=== PATIENT | male | born 1980 | race Caucasian/White ===

== ENCOUNTER 2021-12-26 10:52 | Outpatient (CLI) | payer OTHER, SELFPAY ==
[2021-12-26 22:10] LABS: Albumin* 4.7 g/dL (3.3-5.0); Chloride* 100 mmol/L (96-114)
[2021-12-26 22:11] LABS: Potassium* 4.7 mmol/L (3.6-5.1); Sodium* 136 mmol/L (135-149)
[2021-12-26 22:13] LABS: Bilirubin Total* 1.1 mg/dL (0.1-1.5); Carbon Dioxide* 28 mmol/L (20-32); Cholesterol* 217 mg/dL (90-199); Creatinine* 0.9 mg/dL (0.5-1.5); Estimated Glomerular Filt Rate 110 ml/min
[2021-12-26 22:14] LABS: Alkaline Phosphatase* 78 U/L (40-150); Aspartate Amino Transferase* 35 U/L (12-35); Blood Urea Nitrogen* 14 mg/dL (5-24); Calcium* 9.9 mg/dL (8.4-10.6); Glucose* 93 mg/dL (60-115); HDL Cholesterol* 61 mg/dL (>=40); LDL Cholesterol Calculated 131 mg/dL (<100); Total Protein* 7.5 g/dL (6.0-8.3); Triglycerides* 123 mg/dL (40-149)
[2021-12-26 22:15] LABS: Alanine Aminotransferase* < 4 U/L (4-50)
== END 2021-12-26 10:53 | disposition home or self-care (01) ==
PROVIDERS: PCP Physician Assistant Medical; Visit Provider Physician Assistant Medical
DX: Z00.00 Encounter for general adult medical examination without abnormal findings (principal); G20 Parkinson's disease; Z13.6 Encounter for screening for cardiovascular disorders; Z12.5 Encounter for screening for malignant neoplasm of prostate; Z13.29 Encounter for screening for other suspected endocrine disorder
CPT/HCPCS: 80053; 80061; 84153; 84443

== ENCOUNTER 2022-01-04 19:01 | Emergency (ER) | payer OTHER, SELFPAY ==
[2022-01-04 19:15] VITALS: BP 114/77; PULSE 73; RESP 18; TEMP 36.7; O2SAT 99; BMI 27.9
--- NOTE | 2022-01-04 20:23 | ED.GENADULT ---
HPI - General Adult General Date Seen: 01/04/22 Chief complaint: Laceration/Wound Stated complaint: Cut on Chin Time Seen by Provider: 01/04/22 19:24 Source: patient and family History of Present Illness HPI narrative: Patient is a 41-year-old male with underlying early onset Parkinson's and some associated dementia here with significant other for evaluation of a chin laceration. He was apparently walking up a hill with a wheelbarrow, tripped and chin was lacerated on shovel which he had been using today can injured. He is not up-to-date on his tetanus which he last had in November of 2011. Bleeding is controlled. No other injuries or complaints. Related Data Home Medications Medication Instructions Recorded Confirmed amitriptyline 10 mg tablet 10 mg PO QDAY 12/26/21 01/04/22 carbidopa 25 mg-levodopa 100 mg 1 tab PO .5 Times Daily 12/26/21 01/04/22 tablet carbidopa ER 25 mg-levodopa 100 mg 1 tab PO BID 12/26/21 01/04/22 tablet,extended release carbidopa ER 61.25 mg-levodopa 245 3 cap PO TID 12/26/21 01/04/22 mg capsule,extended release cyclosporine 0.05 % eye drops in a 1 drp ophthalmic (eye) Q12H 12/26/21 01/04/22 dropperette (Restasis) folic acid-vit B6-vit B12 2.5 1 tab PO QDAY 12/26/21 01/04/22 mg-25 mg-2 mg tablet (Folbic) multi vitamin 1 tab PO DAILY 12/26/21 01/04/22 polymyxin B sulfate 10,000 2 ophthalmic (eye) TID 12/26/21 12/26/21 unit-trimethoprim 1 mg/mL eye drops quetiapine 25 mg tablet 25 mg PO HS 01/04/22 01/04/22 Allergies Allergy/AdvReac Type Severity Reaction Status Date / Time No Known Allergies Allergy Unknown Verified 12/26/21 10:09 [facility] Medical History (Updated 01/04/22 @ 20:12 by Samantha Bey MD) Early-onset Parkinson's disease 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 Urinary hesitancy Surgical History Status post vasectomy Family History (Updated 12/24/21 @ 10:56 by Swapnil Corbett) Other Melanoma Social History Smoking Status: Never smoker Do you use any of these nicotine containing products: None Second hand tobacco smoke exposure: No How often do you have a drink containing alcohol: never How often do you have six or more drinks on one occasion: Never AUDIT-C Alcohol total score: 0 Non-prescribed substance use: denies use Little interest or pleasure in doing things: not at all Feeling down, depressed, or hopeless: not at all Exam Narrative: Exam Narrative: Vital signs reviewed In general, an alert, nontoxic male. Head: Normocephalic. Eyes: Pupils equal reactive. ENT: No bony facial trauma. Dentition intact. 1/2 cm laceration into the subcutaneous tissues on the chin. Bleeding controlled. Wound edges approximate nicely. Const: Vital Signs, click to edit/add: Vital Signs - 24 hr 01/04/22 19:15 Temperature 98.0 F Pulse Rate [Right Pulse Oximeter] 73 Respiratory Rate 18 Blood Pressure [Ri ght Upper Arm] 114/77 Pulse Oximetry 99 Oxygen Delivery Me thod Room Air Documenting provider has reviewed patient's vital signs: yes Course Course Hospital Course: In discussion with the patient he preferred glue that was an option. I think given that the wound comes together so nicely and that bleeding is actually non-existent it is reasonable to use a blue here. Wound was cleaned and then closed with Dermabond. He tolerated this well, no major complication. Discussed Dermabond care, routine wound care, return for any signs of infection or other issues. We did update his tetanus. Vital Signs Vital signs: Initial Vital Signs Temperature 98.0 F 01/04/22 19:15 Temperature Source Temporal Artery Scan 01/04/22 19:15 Pulse Rate 73 01/04/22 19:15 Respiratory Rate 18 01/04/22 19:15 Blood Pressure 114/77 01/04/22 19:15 Blood Pressure Mean 89 01/04/22 19:15 Blood Pressure Position Sitting 01/04/22 19:15 Pulse Oximetry 99 01/04/22 19:15 Oxygen Delivery Method 01/04/22 19:15 Vital Signs Temperature 98.0 F 01/04/22 19:15 Pulse Rate 73 01/04/22 19:15 Respiratory Rate 18 01/04/22 19:15 Blood Pressure 114/77 01/04/22 19:15 Pulse Oximetry 99 01/04/22 19:15 Oxygen Delivery Method 01/04/22 19:15 Temperature 98.0 F 01/04/22 19:15 Pulse Rate 73 01/04/22 19:15 Respiratory Rate 18 01/04/22 19:15 Blood Pressure 114/77 01/04/22 19:15 Pulse Oximetry 99 01/04/22 19:15 Oxygen Delivery Method 01/04/22 19:15 Discharge Plan Discharge Clinical Impression: Chin laceration Patient Disposition: Home, Self-Care Condition: Improved Instructions: Laceration (ED), Skin Adhesive Care (ED) Additional Instructions: Routine wound care. Return for signs of infection. Per wilian Metcalf to get your COVID booster tomorrow as planned Prescriptions: No Action polymyxin B sulf-trimethoprim 10,000 unit- 1 mg/mL drops 2 ophthalmic (eye) TID carbidopa-levodopa 25-100 mg tablet extended release 1 tab PO BID carbidopa-levodopa 25-100 mg tablet 1 tab PO .5 Times Daily carbidopa-levodopa 61.25-245 mg capsule, extended release 3 cap PO TID amitriptyline 10 mg tablet 10 mg PO QDAY cyclosporine [Restasis] 0.05 % dropperette 1 drp ophthalmic (eye) Q12H multi vitamin 1 tab PO DAILY Folbic 2.5-25-2 mg tablet 1 tab PO QDAY quetiapine 25 mg tablet 25 mg PO HS Label Comments: TAKE 1/2 TABLET BY MOUTH AT BEDTIME Follow Up/Referrals: Tess Randall PA-C [Primary Care Provider] - Stand Alone Forms: MyHealth Info Instructions
[2022-01-04] MEDS: TETANUS/DIPHTH/PERTUSSIS 0.5 ML SYRINGE IM (20:40)
[2022-01-04 21:04] VITALS: BP 119/74; PULSE 70; RESP 18; TEMP 36.7; O2SAT 99
[2022-01-04 21:06] VITALS: BP 119/74; PULSE 70; RESP 18; TEMP 36.7
== END 2022-01-04 20:45 | disposition home or self-care (01) ==
PROVIDERS: Emergency Provider Emergency Medicine; PCP Physician Assistant Medical
DX: S01.81XA Laceration without foreign body of other part of head, initial encounter (principal); W26.9XXA Contact with unspecified sharp object(s), initial encounter
CPT/HCPCS: 12011; 90471; 90715; 99283

== ENCOUNTER 2022-02-28 12:45 | Outpatient (RCR) | payer OTHER, SELFPAY ==
--- NOTE | 2022-01-05 09:50 | SLP.EVAL ---
Tess Please review, sign and return Thank you Cyndee Mccollum, ROTARY SOIL STABILIZER OPERATOR ROTARY SOIL STABILIZER OPERATOR Clyde ROTARY SOIL STABILIZER OPERATOR Stephal Start: 01/03/22 15:45 Freq: Status: Active Protocol: Document 01/03/22 15:45 JO ANN (Rec: 01/03/22 16:19 HJS [id number]) E-signed By Cyndee Mccollum CCC, ROTARY SOIL STABILIZER OPERATOR ROTARY SOIL STABILIZER OPERATOR System Review History & Reason For Referral Type of Speech Evaluation Voice Evaluation Rehabilitation Order Evaluation and Treat Date of Order 12/26/21 Reason for Referral voice decline due to Parkinson 's Disease Onset Date Of Patient's Problem 01/08/20 Medical Diagnosis Early onset Parkinson's Disease; Frontotemporal Dementia Treatment Diagnosis Dysphonia Hearing Information Hearing Status Within normal limits Vision Information Vision Status Patient wears glasses Patient Orientation Orientation & Mental Status Cognitive deficits ROTARY SOIL STABILIZER OPERATOR Initial Assessment/POC Subjective Information Subjective/Pain Comment Patient independently ambulated to the therapy room. He is pleasant and cooperative. His is with him. Caregiver's Name Shanel - Assessment & Impression Assessment/Impression Patient is a 41 year old with early onset Parkinson's Disease and Frontotemporal Dementia referred for speech therapy, specifically LSVT LOUD therapy. He was diagnosed with Parkinson's in January of 2020 and Frontotemporal Dementia in July 2021. His initial Parkinson's symptoms were right hand weakness and right toes curling in when he ran. He did not notice changes to his speech until this past year and that is now his biggest concern. He notices decreased volume, slurred, mumbled speech, and monotone pitch and he is starting to mix up his words. He feels he has a more difficult time talking at the end of the day. He reports that people often ask him to repeat himself. He feels that the Parkinson's has caused him to speak a little less. Both he and his have noticed cognitive changes . He uses his phone for making lists, keeping track of appointments and medication reminders. He takes a combination of Carbidopa/Levodopa and Rytary. He takes amitriptyline for sleep. He has been a long time runner and continues to run 3 -4 miles a day. 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 Acoustic Measures: sound pressure level (SPL, acoustic correlate of vocal loudness) measure with a sound level meter at a distance of 30cm from the patient's mouth during three voice and speech tasks revealed the following average vocal SPL numbers: Average Loudness-- -------Ave. Max Phonation time Vowels 54dB 8.1 seconds Reading 63dB N/A Conversation 61 dB N/A Perceptual Measures: This clinician engaged in conversation with the patient from a distance of 2.5 feet in a quiet environment. Patient' s functional speech intelligibility was judged to be 100% but very soft. SWALLOW He was observed drinking water during the evaluation and did not have any signs of aspiration. He reports increased saliva and notices some drooling especially at night in bed. IMPRESSIONS AND RECOMMENDATIONS: Patient presents with a moderate voice disorder including reduced loudness, intermittent slurred speech and decreased pitch variation which contribute to an overall decrease in speech intelligibility. Based on stimulability testing, patient appears to be an excellent candidate for the LSVT LOUD program comprised of 16 intensive sessions (4 days a week for 4 weeks: one hour sessions) of voice treatment. Prognosis for improvement is excellent based on his motivation, and family support . 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 SHORT TERM GOALS: 1)Patient will increase vocal loudness to reach a target sound pressure level of >70dB with good vocal quality in structured word and sentence tasks 80% of the time 2)Patient will increase vocal loudness to reach a target sound pressure level of >70 dB with good vocal quality in paragraph reading 80% of the time. 3)Patient will increase vocal loudness to reach a target sound pressure level of >70 dB with good vocal quality in conversation 80% of the time. Intervention Plan & Frequency Intervention Plan LSVT LOUD voice therapy Frequency 4x Per Week Duration 4 Weeks Frequency/Duration total of 16 treatment sessions Discharge Plan Patient Will be Discharged from Therapy Completion of LTG(s),Skills Plateau,Independently Progressing Therapist Signature & License # I Certify That Therapy Services Provided, Therapy Plan Established, Therapy Plan Reviewed Therapist Signature & License Number Cyndee Mccollum [facility]-ROTARY SOIL STABILIZER OPERATOR,# [id number] Certification Date Date of First Visit for Therapy 01/03/22 Recertification Due Date 04/02/22 Physician Signature Signature of Physician Indicates Treatment Plan,Certification Plan,Medically Needed Services Physician Signature & Date Required Please Sign/Date Here Speech/Language Pathology Billing Units Billing Units Eval Speech Voice/Resonance 1
--- NOTE | 2022-03-06 13:39 | SLP.DC ---
Discharge for Everton Epperson. He has completed the LSVT LOUD program [facility] Discharge [facility] Discharge Start: 01/03/22 15:45 Freq: Status: Active Protocol: Document 03/06/22 13:08 JO ANN (Rec: 03/06/22 13:39 Dara [id number]) E-signed By Cyndee Mccollum CCC, [facility] Speech Therapy Discharge Subjective Information Subjective/Pain Comment Patient always ready for therapy. Homework always completed. 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 SHORT TERM GOALS: 1)Patient will increase vocal loudness to reach a target sound pressure level of >70dB with good vocal quality in structured word and sentence tasks 80% of the time. PROGRESS: sustained /ah/ in the 70sdB. 2)Patient will increase vocal loudness to reach a target sound pressure level of >70 dB with good vocal quality in paragraph reading 80% of the time. PROGRESS: He used tapping during sentences which helped some. Loudness <70dB 3)Patient will increase vocal loudness to reach a target sound pressure level of >70 dB with good vocal quality in conversation 80% of the time. PROGRESS: Used tapping during conversation with some success . Loudness <dB RESPIRATORY SUPPORT: Maximum sustained phonation x15 for an average of 21 seconds. PITCH: Pitch glides up x15 on /a/ to the highest pitch of 278 Hz. Pitch glides down on /a/ x15 to the lowest pitch of 137 Hz for a maximum range of 141 Hz. Interventions Provided During Treatment Interventions Provided During [facility] LSVT LOUD voice therapy Treatment Assessment Assessment/Impression Initial Acoustic Measures on : sound pressure level ( SPL, acoustic correlate of vocal loudness) measure with a sound level meter at a distance of 30cm from the patient's mouth during three voice and speech tasks revealed the following average vocal SPL numbers: Average Loudness-- -------Ave. Max Phonation time Vowels 54dB 8.1 seconds Reading 63dB N/A Conversation 61 dB N/A FINAL ACOUSTIC MEASURES ON Average Loudness-- -------Ave. Max Phonation time Vowels 72dB 24.1 seconds Reading 64dB N/A Conversation 65dB N/A Patient has made some progress in his ability to increase his volume and sustain vocalization. He continues to need cues to slow his rate but with some hand tapping he is able to slow his rate which significantly helps his intelligibility. He reports that the treatment has been helpful. Recommendations/Reasons for Discharge Recommendations/Reason for Dischrge Met All Therapy Goals Discharge Instructions Discharge Instructions Continue daily vocal exercises including: Sustained phonation x6 Pitch glides up x6 Pitch glides down x6 Read 10 every day sentences Read aloud x5-10 minutes: paragraph level Therapist Signature and License # Therapist Signature/License Number Cyndee Mccollum [facility],# [id number]
== END 2022-10-26 23:59 | disposition home or self-care (01) ==
PROVIDERS: PCP Physician Assistant Medical; Visit Provider Physician Assistant Medical
DX: G20 Parkinson's disease (principal); Z51.89 Encounter for other specified aftercare
CPT/HCPCS: 92507; 92524

== ENCOUNTER 2023-02-08 14:41 | Outpatient (CLI) | payer OTHER, SELFPAY ==
--- NOTE | 2023-02-08 15:00 | CRLHL7_ITS ---
For Patients: As a result of the Century Cures Act, medical imaging exams and procedure reports are released immediately into your electronic medical record. You may view this report before your referring provider. If you have questions, please contact your health care provider. INDICATION: left testicle lump. s/p vasectomy COMPARISON: 06/10/2014 TECHNIQUE: Gaona scale imaging was performed of the scrotum. In addition color Doppler and spectral Doppler analysis was performed of the testes. FINDINGS: The testes demonstrate normal arterial and venous blood flow on color Doppler and spectral Doppler analysis. The testes have uniform echogenicity with no evidence of a suspicious mass or area of inflammation. Persistent incidental curvilinear calcification within the left testicle. The right testis measures 4.4 x 1.7 x 2.9 cm in size and the left testis measures 4.7 x 1.9 x 2.2 cm. Left epididymal cyst is again noted measuring 7 x 4 x 6 millimeters, previously measuring 7 millimeters. Normal right epididymis. Small bilateral varicoceles are suspected. Trace left hydrocele. IMPRESSION: No suspicious testicular mass or evidence of orchitis/epididymitis. No torsion. Trace left hydrocele and small bilateral varicoceles. Unchanged left epididymal body cyst measuring 7 millimeters. Dictated by Jan Powers MD @ 02/09/2023 9:42:50 AM (Electronically Signed)
== END 2023-02-08 14:42 | disposition home or self-care (01) ==
LOC: US 14:42
PROVIDERS: PCP Physician Assistant Medical; Visit Provider Physician Assistant Medical
DX: N50.89 Other specified disorders of the male genital organs (principal); I86.1 Scrotal varices
CPT/HCPCS: 76870; 93976

== ENCOUNTER 2023-02-21 08:00 | Outpatient (CLI) | payer OTHER, SELFPAY | END 2023-02-21 08:01 | disposition home or self-care (01) | LOC: NFLDREF 02-27 11:22 | PROVIDERS: PCP Physician Assistant Medical; Referring Provider Physician Assistant Medical; Visit Provider Physician Assistant Medical | DX: Z00.00 Encounter for general adult medical examination without abnormal findings (principal); Z13.6 Encounter for screening for cardiovascular disorders; Z13.29 Encounter for screening for other suspected endocrine disorder | CPT/HCPCS: 80053; 80061; 84443 ==

== ENCOUNTER 2023-05-06 11:55 | Outpatient (CLI) | payer OTHER, SELFPAY | END 2023-05-06 11:56 | disposition home or self-care (01) | LOC: NFLDREF 05-09 11:59 | PROVIDERS: PCP Physician Assistant Medical; Referring Provider Physician Assistant Medical; Visit Provider Physician Assistant | DX: R30.0 Dysuria (principal) | CPT/HCPCS: 87086 ==

== ENCOUNTER 2024-07-10 13:51 | Outpatient (CLI) | payer MEDICARE, BC, SELFPAY | END 2024-07-10 13:52 | disposition home or self-care (01) | PROVIDERS: PCP Physician Assistant Medical; Visit Provider Physician Assistant Medical | DX: G31.09 Other frontotemporal neurocognitive disorder (principal); G20.A1 Parkinson's disease without dyskinesia, without mention of fluctuations; F02.80 Dementia in other diseases classified elsewhere, unspecified severity, without behavioral disturbance, psychotic disturbance, mood disturbance, and anxiety; M79.89 Other specified soft tissue disorders; R06.00 Dyspnea, unspecified; Z13.6 Encounter for screening for cardiovascular disorders; Z11.4 Encounter for screening for human immunodeficiency virus [HIV]; Z11.59 Encounter for screening for other viral diseases | CPT/HCPCS: 80053; 80061; 82607; 82747; 83880; 84425; 84443; 86703; 86803 ==